=== PATIENT | female | born 1995 | race Caucasian/White ===

== ENCOUNTER 2021-04-11 19:37 | Inpatient (IN) ==
[2021-04-11 20:41] LABS: Urine Appearance Clear; Urine Bilirubin Negative (Negative); Urine Blood Negative (Negative); Urine Color Yellow; Urine Glucose Negative (Negative); Urine Ketones Negative (Negative); Urine Nitrite Negative (Negative); Urine Protein Negative (Negative); Urine Specific Gravity 1.026 (1.002-1.030); Urine Urobilinogen Positive (Negative)
[2021-04-11 20:55] LABS: Urine Benzodiazepine Screen Presumptive Positive (None Detect); Urine Cannabinoids Screen None Detected (None Detect); Urine Opiates Screen None Detected (None Detect)
[2021-04-11 21:45] LABS: ABS Eosinophils 0.3 10^3/ul (0-0.6); ABS Lymphocytes 1.9 10^3/ul (1.0-4.8); ABS Monocytes 0.7 10^3/ul (0-0.8); ABS Neutrophils 3.6 10^3/ul (1.5-7.7); Eosinophil % 5.3 %; Hematocrit 36 % (35-47); Hemoglobin 12.3 g/dL (12.0-16.0); Lymphocyte % 28.9 %; Mean Corpuscular HGB Conc 35 g/dL (31-36); Mean Corpuscular Hemoglobin 31 pg (27-31); Mean Corpuscular Volume 89 fL (80-97); Mean Platelet Volume 8.1 fL (7.4-10.4); Nucleated Red Blood Cells % 0.1; Platelet Count 313 10^3/uL (150-450); Red Blood Count 3.99 10^6 /uL (3.70-4.87); Red Cell Distribution Width 13 % (10-15); White Blood Count 6.5 10^3/uL (3.5-10.8)
[2021-04-11 22:01] LABS: ALT 11 U/L (7-52); AST 14 U/L (13-39); Albumin 4.5 g/dL (3.2-5.2); Albumin/Globulin Ratio 1.8 (1-3); Alkaline Phosphatase 40 U/L (35-149); Anion Gap 5 mmol/L (2-11); Blood Urea Nitrogen 12 mg/dL (6-24); CO2 Carbon Dioxide 26 mmol/L (22-32); Chloride 109 mmol/L (101-111); EGFR African American 109.1 (>60); EGFR Non-African American 90.2 (>60); Globulin 2.5 g/dL (2-4); Glucose 83 mg/dL (70-100); Sodium 140 mmol/L (135-145)
[2021-04-11 22:07] LABS: HCG Pregnancy < 0.60 mIU/mL
[2021-04-11 22:31] LABS: Acetaminophen < 15 mcg/mL; Alcohol, S < 10 mg/dL (<10); Salicylate < 2.50 mg/dL (<30)
[2021-04-11 22:47] LABS: TSH Ultra Thyroid Stim Horm 7.21 mcIU/mL (0.34-5.60)
[2021-04-12] MEDS ORDERED: OLOPATADINE 0.1% BOTH EYES PRN (12:12)
[2021-04-12] MEDS ORDERED: Albuterol HFA INHALER 8 gm MDI INH PRN (12:12)
[2021-04-12] MEDS ORDERED: Al Hydrox/Mg Hydrox/Simet LIQ 30 ML UDC PO PRN (12:19)
[2021-04-12] MEDS: Vitamin THERAPEUTIC TAB PO SCH (14:41)
[2021-04-12] MEDS: Mometasone 220 MCG MDI INH SCH (22:14)
[2021-04-13] MEDS: Vitamin THERAPEUTIC TAB PO SCH (07:34)
[2021-04-13] MEDS: Mometasone 220 MCG MDI INH SCH ×2 (07:35→20:18)
[2021-04-14] MEDS: Mometasone 220 MCG MDI INH SCH ×2 (09:51→21:54)
[2021-04-14] MEDS: Vitamin THERAPEUTIC TAB PO SCH (09:52)
[2021-04-15] MEDS: Mometasone 220 MCG MDI INH SCH ×2 (09:18→20:25)
[2021-04-15] MEDS: Vitamin THERAPEUTIC TAB PO SCH (09:19)
[2021-04-16 07:32] LABS: HDL Cholesterol 72.8 mg/dL
[2021-04-16] MEDS: Mometasone 220 MCG MDI INH SCH ×2 (09:07→21:13)
[2021-04-16] MEDS: Vitamin THERAPEUTIC TAB PO SCH (09:07)
[2021-04-17] MEDS: Mometasone 220 MCG MDI INH SCH (08:59)
[2021-04-17] MEDS: Vitamin THERAPEUTIC TAB PO SCH (08:59)
[2021-04-17 09:03] VITALS: BP 124/65
== END 2021-04-17 12:05 | disposition home or self-care (01) | DRG 751 ==
LOC: ED 19:37 → BSU 04-12 07:32
PROVIDERS: ADMIT Psychiatry & Neurology Psychiatry; ATTEND Psychiatry & Neurology Psychiatry

== ENCOUNTER 2023-02-21 13:55 | Inpatient (IN) ==
[2023-02-21] MEDS ORDERED: Lactated Ringers 1000 ml BAG 1,000 ML IV ONE ×2 (14:03→16:38)
[2023-02-21 14:39] LABS: ABS Basophils 0.1 10^3/uL (0.0-0.1); ABS Lymphocytes 0.5 10^3/uL (1.0-4.8); ABS Monocytes 1.5 10^3/uL (0.0-0.9); Eosinophil % 0.2 %; Hematocrit 38.1 % (35-45); Hemoglobin 12.8 g/dL (11.5-14.3); Lymphocyte % 2.7 %; Mean Corpuscular Hemoglobin 29.3 pg (27-33); Mean Corpuscular Hgb Conc 33.6 g/dL (31-36); Mean Corpuscular Volume 87.3 fL (80-97); Mean Platelet Volume 7.9 fL (7.5-11.2); Platelet Count 412 10^3/uL (150-450); Red Blood Count 4.36 10^6/uL (3.63-4.92); Red Cell Distribution Width 13.1 % (12-17); White Blood Count 20.2 10^3/uL (3.8-11.8)
[2023-02-21 14:44] LABS: INR 1.2 (0.88-1.18)
[2023-02-21 15:00] LABS: Alcohol, S < 13 mg/dL (<13); Salicylate < 2.50 mg/dL (<30)
[2023-02-21 15:05] LABS: Acetaminophen < 15 mcg/mL
[2023-02-21 15:21] LABS: High Sens Troponin Baseline 3 pg/mL (<15)
[2023-02-21 15:22] LABS: HCG Pregnancy < 0.60 mIU/mL
[2023-02-21 15:27] LABS: ALT 47 U/L (7-52); AST 31 U/L (13-39); Albumin 4.9 g/dL (3.2-5.2); Alkaline Phosphatase 46 U/L (35-149); Anion Gap 10 mmol/L (2-16); Blood Urea Nitrogen 16 mg/dL (6-24); CO2 Carbon Dioxide 25 mmol/L (22-32); Calcium 9.5 mg/dL (8.6-10.3); Chloride 106 mmol/L (101-111); Creatinine, Serum 1.01 mg/dL (0.51-0.95); Globulin 2.5 g/dL (2-4); Glucose 118 mg/dL (70-100); Magnesium 1.9 mg/dL (1.9-2.7); Potassium 4.3 mmol/L (3.5-5.0); Sodium 141 mmol/L (135-145); Total Protein 7.4 g/dL (6.4-8.9); eGFR CKD-EPI 79.2 (>60)
[2023-02-21 15:44] LABS: Venous Bicarbonate HCO3 23.1 mmol/L (24-28)
[2023-02-21 15:46] LABS: Urine Appearance Clear; Urine Bilirubin Negative (Negative); Urine Blood Negative (Negative); Urine Color Amber; Urine Glucose Negative (Negative); Urine Ketones Negative (Negative); Urine Nitrite Negative (Negative); Urine Protein 1+(30 mg/dL) (Negative); Urine Specific Gravity 1.018 (1.002-1.030); Urine Urobilinogen Negative (Negative)
[2023-02-21 15:54] LABS: Urine Bacteria Absent (Absent); Urine Red Blood Cell Trace(0-2/hpf) (Absent); Urine White Blood Cell Trace(0-5/hpf) (Absent)
[2023-02-21 16:02] LABS: High Sensitivity Troponin 1 Hr < 3 pg/mL (<15)
[2023-02-21 16:27] LABS: Urine Benzodiazepine Screen Presumptive Positive (None Detect); Urine Cannabinoids Screen None Detected (None Detect); Urine Opiates Screen None Detected (None Detect)
[2023-02-22] MEDS ORDERED: EPINEPHrine Anaphylaxis SYR CERTADOSE SYR KIT IM PRN (14:49)
[2023-02-22] MEDS ORDERED: Olopatadine 0.1% OPHTH (NF) 1 DROP BTL BOTH EYES PRN (14:49)
[2023-02-22] MEDS ORDERED: Al Hydrox/Mg Hydrox/Simet LIQ 30 ML UDC PO PRN (15:03)
[2023-02-23] MEDS: Mometasone 220 MCG MDI INH SCH ×3 (01:16→21:30)
[2023-02-23] MEDS: Albuterol HFA INHALER 8 gm MDI INH PRN ×4 (02:32→21:33)
[2023-02-23] MEDS: Vitamin THERAPEUTIC TAB PO SCH (09:05)
[2023-02-24] MEDS: Mometasone 220 MCG MDI INH SCH ×2 (09:05→20:26)
[2023-02-24] MEDS: Vitamin THERAPEUTIC TAB PO SCH (09:07)
[2023-02-25] MEDS: Mometasone 220 MCG MDI INH SCH ×2 (08:38→20:22)
[2023-02-26] MEDS: Mometasone 220 MCG MDI INH SCH (08:04)
[2023-02-26 10:04] VITALS: BP 134/56
== END 2023-02-26 13:35 | disposition home or self-care (01) | DRG 351 ==
LOC: ED 13:55 → EDHOLD 02-22 08:11 → BSU 02-22 14:17
PROVIDERS: ADMIT Psychiatry & Neurology Addiction Psychiatry; ATTEND Psychiatry & Neurology Psychiatry